=== PATIENT | female | born 1980 | race Caucasian/White ===

== ENCOUNTER 2017-09-17 07:47 | Emergency (ER) | payer OTHER ==
[~2017-09-17] VITALS: Ht 165.1 cm; Wt 83.9 kg
[~2017-09-17 07:47] MED LIST: ATIVAN1 M1 PO; ESTRACE; LEVOTHYROXINE0.15 MG PO; LEVOTHYROXINE125 MCG PO; PRENATAL1 TA2 PO; TRAZODONE HCL100 M1 PO; TRILEPTAL150 M1 PO; VITAMIN D31000 IU PO; WELLBUTRIN XL300 M2 PO; ZOLOFT50 MG PO
--- NOTE | 2017-09-17 09:06 | ED GENERAL ADULT ---
History of Present Illness General Chief Complaint: General Adult Stated Complaint: "I HAVE BEEN FEELING REALLY WEAK" Source: patient, old records Exam Limitations: no limitations Allergies Coded Allergies: MDX - Latex (LATEX) (Mild, RASH 06/08/15) Reconcile Medications Bupropion HCl (Wellbutrin XL) 300 MG TAB.ER.24H 450 MG PO DAILY DEPRESSION ( Reported) Cholecalciferol (Vitamin D3) 1,000 IU TAB 1 TAB PO DAILY SUPPLEMENT (Reported ) Estradiol (Estrace 2 MG) (Unknown Strength) TAB (Unknown Dose) UNKNOWN ( Reported) Levothyroxine Sodium 0.15 MG TAB 0.15 MG PO DAILY AC THYROID (Reported) Levothyroxine Sodium 125 MCG TABLET 1 TAB PO DAILY THYROID HEALTH (Reported) LORazepam (Ativan) 1 MG TABLET 1 TAB PO TIDPRN anxiety Oxcarbazepine (Trileptal) 150 MG TABLET 75 MG PO DAILY DEPRESSION (Reported) PNV95/FERROUS FUMARATE/FA ( Formula Tablet) 1 TAB TAB 1 TAB PO DAILY (Reported) Sertraline Hydrochloride (Zoloft) 50 MG TAB 1 TAB PO DAILY MENTAL HEALTH ( Reported) Trazodone HCl 100 MG TABLET 1 TAB PO QPM insomnia Triage Note: PT TO ED C/O "I HAVEN'T BEEN FEELING RIGHT THE PAST 2 DAYS". HAD NEGATIVE FLU AND STREP TEST. DENIES V/D, C/O SOME NAUSEA. Triage Nurses Notes Reviewed? yes : No Patient currently breastfeeds: No HPI: 36 year old female with PMH significant for hypothyroidism, anxiety and depression presents with multiple complaints and is concerned that "something is wrong-I know my body". Patient was driving to work today in [place] and turned around in [place] to present to the ED with complaints of left sided back pain 3 -4/10 in severity, non radiating, worsened with movement, nausea, and weakness. The patient had fatigue, sore throat, and myalgias and thought she had the flu, was evaluted at an urgent care on Thursday, which was negative also rapid strep was negative at that time. Patient reports Tmax 100.0 on Thursday with a low of 95 also. Subjective chills and cold hands, no diaphoresis. She complains of insomnia, weakness, urinary frequency, bladder pressure, insomnia, poor appetite. She was evaluated her previously in July for chest pain and has had a negative stress test since then. Her grandmother recently passed that month from a brain aneurysm and patient is now being evaluated by a neurologist Dr. Calero. 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 She has been on Wellbutrin (>10yrs) and Trileptal (>1yr) for her depression. 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 She reports everything is well at home and her takes care of her daughter while she works. Only other significant change is the new addition of a organic shake called Organ that she ordered off [employer] and has been drinking for the past 5-6 days. (Yannick Field MD) Vital Signs & Intake/Output Vital Signs & Intake/Output Vital Signs Date Time Temp Pulse Resp B/P B/P Pulse O2 O2 Flow FiO2 Mean Ox Delivery Rate 09/17 0936 98.2 76 18 122/84 98 Room Air 09/17 0751 97.0 74 20 134/83 100 Room Air (Tish DEL ANGEL,Anshul Arias) Past History Travel History Traveled to [place] past 21 day No Medical History Any Pertinent Medical History? see below for history Hepatic: cholelithiasis Psychiatric: anxiety, depression Endocrine: hypothyroidism [employer]GE [employer] MACHINE/Reproductive: UTERINE POLYPS OVARIAN CYSTS Surgical History Surgical History: non-contributory Psychosocial History What is your primary language Kazakh Tobacco Use: Never used ETOH Use: denies use Illicit Drug Use: denies illicit drug use Family History Hx Contributory? No (Yannick Field MD) Review of Systems Review of Systems Constitutional: Reports: malaise. EENTM: Reports: throat pain. Denies: visual changes, ear discharge, nasal congestion, epistaxis, mouth pain. Respiratory: Denies: cough, orthopnea, short of breath, sputum production. Cardiovascular: Denies: chest pain, palpitations, syncope. GI: Reports: abdominal pain, nausea. Denies: constipation, diarrhea, distention, vomiting. Genitourinary: Reports: frequency, pain, urgency. Musculoskeletal: Reports: back pain, neck pain. Denies: joint pain. Skin: Reports: no symptoms. Neurological/Psychological: Reports: anxiety, depressed. Denies: cognitive dysfunction, headache, numbness. Hematologic/Endocrine: Reports: no symptoms. Immunologic/Allergic: Reports: no symptoms. All Other Systems: Reviewed and Negative (Yannick Field MD) Physical Exam Physical Exam General Appearance: well developed/nourished, no apparent distress, awake, comfortable Head: atraumatic, normal appearance Eyes: Bilateral: normal appearance, PERRL, EOMI. Neck: normal inspection, supple, full range of motion Respiratory: normal breath sounds, chest non-tender, no respiratory distress, quiet respiration, lungs clear Cardiovascular: regular rate/rhythm, normal peripheral pulses Gastrointestinal: normal bowel sounds, soft, non-tender Back: normal inspection, normal range of motion, no CVA tenderness Extremities: normal inspection, normal capillary refill, normal range of motion, no edema Core Measures ACS in differential dx? No CVA/TIA Diagnosis: No Sepsis Present: No Sepsis Focused Exam Completed? No (Yannick Field MD) Progress Differential Diagnoses I considered the following diagnoses in my evaluation of the patient: influenza, viral infection, urinary tract infection, anxiety, depression, muscle strain, pyelonephritis Initial ED EKG: none (Yannick Field MD) Plan of Care: Orders Procedure Date/time Status RAPID VIRAL INFLUENZA A 09/17 0850 Complete CULTURE,URINE 09/17 0850 Active URINALYSIS 09/17 0850 Complete TSH REFLEX 09/17 0850 Active COMPREHENSIVE METABOLIC PANEL 09/17 0850 Active CBC WITHOUT DIFFERENTIAL 09/17 0850 Complete Laboratory Tests 09/17/17 0905: Urine Color YEL, Urine Clarity CLEAR, Urine pH 7.5, Ur Specific Perkins 1.010, Urine Protein NEG, Urine Ketones NEG, Urine Nitrite NEG, Urine Bilirubin NEG, Urine Urobilinogen 0.2, Ur Leukocyte Esterase NEG, Ur Microscopic EXAM NOT REQUIRED, Urine Hemoglobin NEG, Urine Glucose NEG 09/17/17 0900: Anion Gap 15, Estimated GFR > 60, BUN/Creatinine Ratio 17.5, Glucose 88, Calcium 9.5, Total Bilirubin 0.3, AST 17, ALT 35, Alkaline Phosphatase 42, Total Protein 7.1, Albumin 4.5, Globulin 2.6, Albumin/Globulin Ratio 1.7, TSH &T3 &Free T4 Intrp Pending, CBC w Diff NO MAN DIFF REQ, RBC 4.76, MCV 88.0, MCH 30.0, RDW 12.4, MPV 7.6, Gran % 63.5, Lymphocytes % 27.1, Monocytes % 6.0, Eosinophils % 2.8, Basophils % 0.6, Absolute Granulocytes 4.3, Absolute Lymphocytes 1.8, Absolute Monocytes 0.4, Absolute Eosinophils 0.2, Absolute Basophils 0, PUBS MCHC 34.1 Microbiology 09/17 922 NASOPHARYN: Influenza Virus A & B Rapid Smear - COMP 09/17 904 URINE ROUT: Urine Culture - RECD (Tish DEL ANGEL,Anshul Arias) Departure Departure Time of Disposition: 926 Disposition: HOME OR SELF CARE Condition: Stable Clinical Impression Primary Impression: Malaise Referrals: Macy Zheng DO (PCP/Family) Additional Instructions: Please follow up with your primary care physician. Return to the ED for worsening symptoms Departure Forms: Customer Survey General Discharge Information (Yannick Field MD) Resident Co-Sign Statement Statement: ED Attending supervision documentation- [x] I saw and evaluated the patient. I have also reviewed all the pertinent lab results and diagnostic results. I agree with the findings and the plan of care as documented in the Resident's documentation. [] I have reviewed the ED Record and agree with the Resident's documentation. [] Additions or exceptions (if any) to the Resident's note and plan are summarized below: [] (Tish DEL ANGEL,Anshul Arias) Critical Care Note Critical Care Note Critical Care Time: non-applicable (Yannick Field MD)
[2017-09-17 09:13] LABS: ABSOLUTE BASOPHIL COUNT 0 /CUMM (0.0-0.2); ABSOLUTE EOSINOPHIL COUNT 0.2 /CUMM (0.0-0.7); ABSOLUTE GRANULOCYTE CT 4.3 /CUMM (1.4-6.5); ABSOLUTE LYMPH COUNT 1.8 /CUMM (1.2-3.4); ABSOLUTE MONOCYTE COUNT 0.4 /CUMM (0.10-0.60); BASOPHIL % 0.6 % (0.0-2.0); EOSINOPHIL % 2.8 % (0-5); GRANULOCYTE % 63.5 % (42.2-75.2); HEMATOCRIT 41.8 % (37-47); MEAN CORPUSCULAR HGB CONC 34.1 G/DL (33.0-37.0); MEAN PLATELET VOLUME 7.6 FL (7.4-10.4); PLATELET COUNT 325 /CUMM (130-400); RBC DISTRIBUTION WIDTH 12.4 % (11.5-14.5); RED BLOOD CELL CT 4.76 /CUMM (4.20-5.40); WHITE BLOOD CELL COUNT 6.8 /CUMM (4.8-10.8)
[2017-09-17 09:36] VITALS: BP 122/84
== END 2017-09-17 09:36 ==
LOC: ERH 07:47
DX: R53.81 Other malaise (principal); M54.9 Dorsalgia, unspecified; R11.0 Nausea; J02.9 Acute pharyngitis, unspecified
CPT/HCPCS: 81003; 87086; 87804; 87804-59